=== PATIENT | female | born 1935 | race Caucasian/White ===

== ENCOUNTER 2018-11-17 03:34 | Emergency (ER) | payer MEDICARE, OTHER ==
[2018-11-17] MEDS: CEFEPIME 2GM/50 ML (PMX) 50 ML IVPB (04:14)
[2018-11-17] MEDS: ONDANSETRON 4 MG INJ IV (04:15)
[2018-11-17] MEDS: morphine 4 MG/ML VIAL IV (04:15)
[2018-11-17 04:20] LABS: ADD MAN DIFF? NO
[2018-11-17 04:25] LABS: BASOPHILS % 0.3 % (0.0-2.0); EOSINOPHILS # 0.2 10^3/ul (0.0-0.5); EOSINOPHILS % 2.4 % (0.0-7.0); HEMOGLOBIN 10.5 g/dl (12.0-16.0); LYMPHOCYTES # 1.3 10^3/ul (0.8-2.9); LYMPHOCYTES % 21.2 % (15.0-51.0); MEAN CORPUSCULAR HEMOGLOBIN 32.9 pg (29.0-33.0); MEAN CORPUSCULAR HGB CONC 32.8 g/dl (32.0-37.0); MEAN CORPUSCULAR VOLUME 100.3 fl (82.0-101.0); MEAN PLATELET VOLUME 9.9 fl (7.4-10.4); MONOCYTE # 0.6 10^3/ul (0.3-0.9); MONOCYTES % 10.3 % (0.0-11.0); NEUTROPHIL # 4.1 10^3/ul (1.6-7.5); NEUTROPHILS % 65.5 % (39.0-77.0); PLATELET COUNT 181 10^3/UL (140-415); RED BLOOD COUNT 3.19 10^6/ul (4.20-5.40); RED CELL DISTRIBUTION WIDTH 13.4 % (11.5-14.5)
[2018-11-17 04:25] LABS: WHITE BLOOD COUNT 6.2 10^3/ul (4.8-10.8)
[2018-11-17] MEDS: ACETAMINOPHEN 325 MG TAB PO (04:35)
[2018-11-17 04:45] LABS: ANION GAP 9 (5-13); BLOOD UREA NITROGEN 32 mg/dl (7-20); CALCIUM 9.6 mg/dl (8.4-10.2); CARBON DIOXIDE 22 mmol/L (21-31); CHLORIDE 107 mmol/L (97-110); CREATININE 1.22 mg/dl (0.44-1.00); GLUCOSE 139 mg/dl (70-220); SODIUM 138 mmol/L (135-144)
[2018-11-17 04:46] LABS: C-REACTIVE PROTEIN < 0.5 mg/dl (0.0-0.9); INR 1.06; PROTIME 13.9 Sec (11.9-14.9); PT RATIO 1.1
[2018-11-17 04:47] LABS: PARTIAL THROMBOPLASTIN TIME 29.3 Sec (23.0-35.0)
[2018-11-17] MEDS: VANCOMYCIN 1 GM (PMX) 250 ML IVPB (05:54)
[2018-11-17 06:05] LABS: ERYTHROCYTE SEDIMENTATION RATE 82 mm/Hr (0-30)
[2018-11-17 06:16] LABS: LACTIC ACID 1.3 mmol/L (0.5-2.0)
== END 2018-11-17 09:16 | disposition short-term general hospital (02) ==
LOC: E/R 09:16
DX: S82.031A Displaced transverse fracture of right patella, initial encounter for closed fracture (principal); I10 Essential (primary) hypertension; S89.92XA Unspecified injury of left lower leg, initial encounter; X58.XXXA Exposure to other specified factors, initial encounter; Y92.009 Unspecified place in unspecified non-institutional (private) residence as the place of occurrence of the external cause; Z79.82 Long term (current) use of aspirin; Z96.653 Presence of artificial knee joint, bilateral
CPT/HCPCS: 29505; 36415; 73562; 80048; 83605; 85025; 85610; 85651; 85730; 86140; 87040-91; 93005; 96365; 96366; 96375; 99285-25